=== PATIENT | female | born 1940 | race Caucasian/White ===

== ENCOUNTER → 2016-09-11 09:25 | Outpatient (CLI) | payer MEDICARE, OTHER ==
[2009-10-06 10:40] VITALS: BMI 39.3
[2016-09-11 10:39] LABS: ALBUMIN 3.5 g/dL (3.4-5.0); BILIRUBIN - INDIRECT 0.26 mg/dL (0.00-1.00); BILIRUBIN - TOTAL 0.3 mg/dL (0.2-1.3); PROTEIN - SERUM 6.9 g/dL (6.4-8.2)
[2016-09-11 10:41] LABS: BILIRUBIN - DIRECT 0.04 mg/dL (0.00-0.30)
== END | disposition home or self-care (01) ==
LOC: D.US 09-04 09:00 → D.LAB 09-04 09:30 → D.US 09:25
PROVIDERS: Internal Medicine Gastroenterology
DX: K76.0 Fatty (change of) liver, not elsewhere classified (principal)

== ENCOUNTER → 2017-03-13 08:59 | Outpatient (CLI) | payer MEDICARE, OTHER ==
[2009-10-06 10:40] VITALS: BMI 39.3
[2017-03-13 09:54] LABS: ALBUMIN 3.5 g/dL (3.4-5.0); BILIRUBIN - DIRECT 0.08 mg/dL (0.00-0.30); BILIRUBIN - INDIRECT 0.25 mg/dL (0.00-1.00); BILIRUBIN - TOTAL 0.33 mg/dL (0.2-1.3)
== END | disposition home or self-care (01) ==
LOC: D.US 08:59
PROVIDERS: Internal Medicine Gastroenterology
DX: K76.0 Fatty (change of) liver, not elsewhere classified (principal)

== ENCOUNTER → 2017-09-18 08:26 | Outpatient (CLI) | payer MEDICARE, OTHER ==
[2009-10-06 10:40] VITALS: BMI 39.3
[2017-09-18 09:27] LABS: ALBUMIN 3.7 g/dL (3.4-5.0); BILIRUBIN - DIRECT 0.1 mg/dL (0.00-0.30); BILIRUBIN - INDIRECT 0.32 mg/dL (0.00-1.00); BILIRUBIN - TOTAL 0.42 mg/dL (0.2-1.3); PROTEIN - SERUM 7.2 g/dL (6.4-8.2)
== END | disposition home or self-care (01) ==
LOC: D.LAB 08-12 08:30 → D.US 08-12 08:30 → D.LAB 08-12 09:00 → D.US 08:26
PROVIDERS: Internal Medicine Gastroenterology
DX: K76.0 Fatty (change of) liver, not elsewhere classified (principal)

== ENCOUNTER → 2018-03-06 09:24 | Outpatient (CLI) | payer MEDICARE, OTHER ==
[2009-10-06 10:40] VITALS: BMI 39.3
[2018-03-06 10:15] LABS: ALBUMIN 3.6 g/dL (3.4-5.0); BILIRUBIN - DIRECT 0.14 mg/dL (0.00-0.30); BILIRUBIN - INDIRECT 0.39 mg/dL (0.00-1.00); BILIRUBIN - TOTAL 0.53 mg/dL (0.2-1.3); PROTEIN - SERUM 7.2 g/dL (6.4-8.2)
== END | disposition home or self-care (01) ==
LOC: D.LAB 09:15 → D.US 09:30
PROVIDERS: Internal Medicine Gastroenterology
DX: K76.0 Fatty (change of) liver, not elsewhere classified (principal)

== ENCOUNTER → 2018-03-26 11:34 | Outpatient (CLI) | payer MEDICARE, OTHER ==
[2009-10-06 10:40] VITALS: BMI 39.3
== END | disposition home or self-care (01) ==
LOC: D.HCCARDIO 11:34
DX: I20.9 Angina pectoris, unspecified (principal)

== ENCOUNTER → 2018-04-09 10:51 | Outpatient (CLI) | payer MEDICARE, OTHER ==
[~2018-04-09] VITALS: Ht 154.9 cm; Wt 95.0 kg
--- NOTE | ~2018-04-09 | HEMODYNAMI ---
PATIENT:MIESHA OVERTON MEDICAL RECORD: [id number] : 44 LOCATION:[facility] ADMISSION DATE: 04/09/18 Generatedon:04/09/201814:13 Patient name: MIESHA OVERTON Patient #: [id number] SSN: : 1940 Date of study: 04/09/2018 Page: Of Hemodynamic Procedure Report Patient Data Patient Demographics Procedure consent was obtained First Name: MIESHA Gender: Female Last Name: BROOKLYNN : 1940 Middle Initial: A Age: 77 year(s) Patient #: [id number] Race: Unknown Additional ID: [id number] Contact details Address: [address] [place] [address] State: [place] City: [place] Zip code: [address] Past Medical History Allergies: No known allergies Admission Admission Data Admission Date: 04/09/2018 Admission Time: 10:51 Admit Source: Other Height (in.): 61 BSA: 1.95 (m2) Height (cm.): 154.94 BMI: 40.62 (kg/m2) Weight (lbs.): 215 Weight (kg.): 97.52 Lab Results Lab Result Date: 04/09/2018 Lab Result Time: 0:00 Biochemistry Name Units Result Min Max BUN mg/dl 17 --(---*)-- 7 18 Creatinine mg/dl 0.9 --(-*--)-- 0.6 1.3 CBC Name Units Result Min Max Hemoglobin g/dl 14.5 --(*---)-- 13.5 17.5 Procedure Procedure Types Cath Procedure Diagnostic Procedure [facility] w/Coronaries Sedation Charges Moderate Sedation up to 15 minutes PCI Procedure Coronary Stent Coronary Stent Initial Procedure Description Procedure Date Procedure Date: 04/09/2018 Procedure Start Time: 13:45 Procedure End Time: 14:12 Procedure Staff Name Function Scott Jiang MD Performing Physician Wanda Lynn RT Monitor Reginald Cruz RT Scrub Dori Diamond RN Nurse Bunny Whittington RT Human Geography Faculty Member Procedure Data Cath Procedure Fluoroscopy Diagnostic fluoroscopy Total fluoroscopy Time: 6.5 time: 6.5 min min Diagnostic fluoroscopy Total fluoroscopy dose: dose: 1241 mGy 1241 mGy Contrast Material Contrast Material Type Amount (ml) Isovue 300 132 Entry Location Entry Primary Successful Side Size Upsize Upsize Entry Closure Arechiga ccessful Closure Location (Fr) 1 (Fr) 2 (Fr) Remarks Device Remarks Radial Right 6 Fr Mechanical artery Short Compression Estimated blood loss: 10 ml Diagnostic catheters Device Type Used For End Catheter Placement DIAGNOSTIC [place] 110cm 5 Procedure Fr catheter ([id number]) Procedure Complications No complications Procedure Medications Medication Administration Route Dosage 0.9% NaCl I.V. 100 ml/hr Oxygen etCO2 Nasal cannula 2 l/min Lidocaine 2% added to field 20 Heparin Flush Bag added to field 2 bags (1000units/500ml NS) Radial Cocktail added to field 1 syringe (Verapomil 2mg/Nitro 400mcg/Heparin 1500units) Fentanyl I.V. 100 mcg Versed I.V. 2 mg Heparin Bolus I.V. 9500 units Nitroglycerin IC/IA I.C. 100 mcg Brilinta P.O. 180 mg Hemodynamics Rest BSA: 1.95 (m2) O2 Consumption: Estimated: 174.74 (ml/min) O2 Consumption indexed : Estimated:89.61 (ml/min/m) Heart Rate: 66 (bpm) Pressure Samples Time Site Value (mmHg) Purpose Heart Use Rate(bpm) 13:48 LV 176/8,14 Snapshot 66 Gradients Valve Time Site Site Mean SEP/DFP Peak To Heart Use 1 2 (mmHg) (sec/min) Peak Rate (mmHg) (bpm) Aortic 13:49 LV AO 69 Snapshots Pre Cath Intra NCS Post Cath Vital Signs Time Heart Resp SPO2 etCO2 NIBP (mmHg) Rhythm Pain Sedation Rate (ipm) (%) (mmHg) Status Level (bpm) 13:34:46 61 16 99 35.1 175/55(73) NSR 0 (11) 10(A) , No pain 13:39:32 60 19 98 29 169/81(118) NSR 0 (11) 10(A) , No pain 13:44:15 62 16 97 36 167/85(133) NSR 0 (11) 9(A) , No pain 13:49:49 66 16 96 28.2 182/85(137) NSR 0 (11) 9(A) , No pain 13:54:34 65 15 97 20.9 181/87(137) NSR 0 (11) 9(A) , No pain 13:59:24 66 13 97 29.9 172/74(132) NSR 0 (11) 9(A) , No pain 14:04:09 67 22 98 38.9 172/80(131) NSR 0 (11) 9(A) , No pain 14:08:50 69 20 99 38.1 162/83(115) NSR 0 (11) 10(A) , No pain Medications Time Medication Route Dose Verified Delivered Reason Not es Effectiveness by by 13:33:13 0.9% NaCl I.V. 100 Scott Dori used for ml/hr Apolinar Diamond laboratory animal care veterinarian 13:33:23 Oxygen etCO2 2 l/min Scott Dori used for Nasal Apolinar Diamond procedure cannula RN 13:33:29 Lidocaine 2% added 20ml Scott Scott for local to vial Apolinar Jiang MD anesthetic field 13:33:34 Heparin Flush added 2 bags Scott Scott used for Bag to Apolinar Jiang MD procedure (1000units/500ml field NS) 13:33:44 Radial Cocktail added 1 Scott Scott used for (Verapomil to syringe Apolinar Jiang MD procedure 2mg/Nitro field 400mcg/Heparin 1500units) 13:40:53 Fentanyl I.V. 100 mcg Scott Dori for sedation Apolinar Diamond RN 13:41:00 Versed I.V. 2 mg Scott Dori for sedation Apolinar Diamond RN 13:56:25 Heparin Bolus I.V. 9500 Scott Dori for sarah ified units Apolinar Diamond anticoagulation with Dr. MATTHEW Jiang 14:07:30 Nitroglycerin I.C. 100 mcg Scott Dori for IC/IA Apolinar velasquez RN 14:09:59 Brilinta P.O. 180 mg Scott Dori for Apolinar Diamond antiplatelet RN therapy Procedure Log Time Note 13:19:15 Informed consent obtained and on chart 13:19:18 Admit Source: Other 13:20:04 Diagnostic Cath status Elective 13:20:26 Time tracking: Regular hours (M-F 7:00 - 5:00) 13:20:30 Plan of Care:Hemodynamics will remain stable., Cardiac rhythm will remain stable., Comfort level will be maintained., Respiratory function will remain adequate., Patient/ family verbilizes understanding of procedure., Procedure tolerated without complication., Recovers from procedure without complications.. 13:20:32 Bunny Arechigapedrito RT(R) sent for patient. Start room use. 13:23:19 H&P Date Dictated: 03/12/2018 Within 30 days and on chart., H&P Addendum completed by physician on day of procedure. (MUST COMPLETE FOR ALL OUTPATIENTS). 13:23:41 Patient allergic to No known allergies 13:23:48 Patient Height : 61 inches 13:23:50 Patient Weight : 215 lbs 13:25:47 Patient received from Pre/Post Procedure Room to CCL 1 Alert and oriented. Tansferred to table in Supine position. 13:25:48 Warm blankets applied, and augustus hugger turned on for patient comfort. 13:25:48 Correct patient and procedure confirmed by team. 13:25:49 ECG and BP/O2 sat monitors applied to patient. 13:33:00 Vital chart was started 13:33:13 0.9% NaCl 100 ml/hr I.V. was administered by Dori Diamond RN; used for procedure; 13:33:23 Oxygen 2 l/min etCO2 Nasal cannula was administered by Dori Diamond RN; used for procedure; 13:33:29 Lidocaine 2% 20ml vial added to field was administered by Scott Jiang MD; for local anesthetic; 13:33:34 Heparin Flush Bag (1000units/500ml NS) 2 bags added to field was administered by Scott Jiang MD; used for procedure; 13:33:44 Radial Cocktail (Verapomil 2mg/Nitro 400mcg/Heparin 1500units) 1 syringe added to field was administered by Scott Jiang MD; used for procedure; 13:38:40 Rhythm: sinus bradycardia 13:38:41 Full Disclosure recording started 13:38:42 Pre-procedure instructions explained to patient. 13:38:42 Pre-op teaching completed and patient verbalized understanding. 13:38:44 Family in patients room. 13:38:45 Patient NPO since Midnight. 13:38:50 Is the patient allergic to Iodine/contrast media? No. 13:38:52 Is patient on blood thinner?No 13:38:54 Patient diabetic? No. 13:38:56 Patient not . Patient is over age 55. 13:39:03 Previous problem with sedation/anesthesia? No ? 13:39:05 Snore? Yes 13:39:06 Sleep apnea? No 13:39:10 Deviated septum? No 13:39:11 Opens mouth fully? Yes 13:39:13 Sticks out tongue? Yes 13:39:14 Airway obstruction? No ? 13:39:15 Dentures? No ? 13:39:20 Modified Zaheer's test Ulnar < 7 seconds 13:39:22 Patient pain scale 0/10 ?. 13:39:25 IV patent on arrival in left hand with 0.9% NaCl at [facility] 13:40:21 Lab Result : BUN 17 mg/dl 13:40:21 Lab Result : Creatinine 0.9 mg/dl 13:40:21 Lab Result : Hemoglobin 14.5 g/dl 13:40:24 Lab results completed and on chart. 13:40:27 Right Radial & Right Groin area was prepped with chlora-prep and draped in sterile fashion 13:40:27 Alarms reviewed by R. N. 13:40:28 Sharps counted by scrub and verified by R.N. 13:40:29 --------ALL STOP TIME OUT------ 13:40:29 Final Timeout: patient, procedure, and site verified with staff and physician. All members of the team are in agreement. 13:40:30 Right Radial & Right Groin site verified by team. 13:40:33 Physical assessment completed. ASA score P 2 - A patient with mild systemic disease as per Scott Jiang MD. 13:40:35 Sedation plan: IV Moderate Sedation Medication:Versed, Fentanyl 13:40:53 Fentanyl 100 mcg I.V. was administered by Dori Diamond RN; for sedation; 13:41:00 Versed 2 mg I.V. was administered by Dori Diamond RN; for sedation; 13:42:12 Use device set Radial Dx or PCI 13:42:15 ACIST Syringe (47272) opened to sterile field. 13:42:16 Bag Decanter (2001S) opened to sterile field. 13:42:17 ACIST Hand Control (03309) opened to sterile field. 13:42:17 ACIST Manifold (17588) opened to sterile field. 13:42:18 Tegaderm 4 x 4 (1626W) opened to sterile field. 13:42:20 Medline Cath Pack ([id number]) opened to sterile field. 13:42:20 DIAGNOSTIC WIRE .035 260cm J wire (605694) opened to sterile field. 13:42:20 MBrace Wrist Support ([id number]) opened to sterile field. 13:42:22 SHEATH 6FR Slender (80-7652) opened to sterile field. 13:42:26 NEEDLE Cook 21G 4cm Radial (X60702) opened to sterile field. 13:45:08 Zero performed for pressure channel P1 13:45:22 Procedure started. 13:45:54 Local anesthetic to right radial artery with Lidocaine 2% by Scott Jiang MD.INITIAL ACCESS ONLY 13:46:01 Zero performed for pressure channel P1 13:47:16 A 6 Fr Short sheath was inserted into the Right Radial artery 13:47:38 A DIAGNOSTIC [place] 110cm 5 Fr catheter (404855) was advanced over the wire and used for Procedure. 13:48:09 LV gram done using PÉREZ 13:48:12 Injector settings: Ml/sec: 5, Volume: 15, 13:48:32 LV hemodynamics recorded. 13:48:58 EF : 50 % 13:51:55 LCA angiography performed. 13:52:27 RCA angiography performed. 13:52:36 Catheter exchanged over wire. 13:52:51 INFLATOR Merit BasixCompak (BP2324) opened to sterile field. 13:52:51 BMW 300cm Straight [place] 2 wire (6955432) opened to sterile field. 13:52:57 TUBING High Pressure Extension Tubing (Apolinar) (XT7832N) opened to sterile field. 13:53:01 GUIDE 6FR XBLAD 3.5 catheter (07965789) opened to sterile field. 13:54:59 6 Fr XBLAD 3.5 guide catheter was inserted over the wire 13:56:25 Heparin Bolus 9500 units I.V. was administered by Dori Diamond RN; for anticoagulation; verified with Dr. Jiang 13:57:13 BMW 300 wire advanced. 13:57:52 Wire advanced across lesion. 13:59:38 Inflate balloon Inflation number: 1 A EMERGE OTW 2.5 x 12 balloon ([id number]) was prepped and advanced across the Prox LAD, then inflated to 10 JUNIOR for 0:10 (min:sec). 14:00:03 Balloon removed over the wire. 14:04:50 Place stent Inflation Number: 2 A CELESTE OTW 3.0 x 12 stent ([id number]) was prepped and advanced across the Prox LAD. The stent was deployed at 10 JUNIOR for 0:10 (min:sec). 14:05:49 Stent catheter was removed intact over wire. 14:07:30 Nitroglycerin IC/IA 100 mcg I.C. was administered by Dori Diamond RN; for vasodilation; 14:08:30 Wire removed. 14:08:31 Guide catheter removed. 14:08:36 TR BAND Standard ([id number]) opened to sterile field. 14:09:06 Procedure ended.(Physican Out) 14:09:45 Sheath removed intact; hemostasis achieved with Mechanical Compression to the Right Radial artery. 14:09:51 Fluoroscopy time 06.50 minutes. 14:09:59 Brilinta 180 mg P.O. was administered by Dori Diamond RN; for antiplatelet therapy; 14:10:03 Fluoroscopy dose: 1241 mGy 14:10:03 Flurop Dose total: 1241 14:10:07 Contrast amount:Isovue 300 132ml. 14:10:09 Sharps counted by scrub and verified by R.N. 14:10:13 TR band inflated with 13cc of air. 14:11:27 Post-procedure physical assessment completed. ASA score P 2 - A patient with mild systemic disease as per Scott Jiang MD. 14:11:32 Post procedure rhythm: sinus rhythm 14:11:35 Estimated blood loss: 10 ml 14:11:37 Post procedure instruction explained to patient.Patient verbalizes understanding. 14:11:37 Patient needs reinforcement of post procedure teaching. 14:12:02 Procedure type changed to Cath procedure, Diagnostic procedure, LHC, LHC w/Coronaries, Sedation Charges, Moderate Sedation up to 15 minutes, PCI procedure, Coronary Stent, Coronary Stent Initial 14:12:05 Procedure and supply charges have been captured, reviewed, submitted and are correct. 14:12:16 Procedure Complication : No complications 14:12:18 Vital chart was stopped 14:12:18 See physician's report for complete and final results. 14:12:20 Report given to Pre/Post Procedure Room. 14:12:22 Patient transfered to Pre/Post Procedure Room with Bed. 14:12:24 Procedure ended. 14:12:24 Full Disclosure recording stopped 14:12:27 End room use (Document Last) Intervention Summary Intervention Notes Time ActionType Lesion and Equipment Action# Pressure Duration Attributes Used 13:59:38 Inflate Prox LAD EMERGE OTW 1 10 00:10 balloon 2.5 x 12 balloon ([id number]) 14:04:50 Place stent Prox LAD CELESTE OTW 3.0 2 10 00:10 x 12 stent ([id number]) Device Usage Item Name Manufacture Quantity Catalog Number [facility] Lot# / Charge Number Stock Stock Serial# Code ACIST Syringe Acist 1 34441 801405 649715 762130 20 (40547) Medical Systems Inc Bag Decanter Microtek 1 2001S 808598 18692 652365 5 (2002S) Medical Inc. ACIST Hand Acist 1 03290 323329 948052 578366 5 Control Medical (51408) Systems Inc ACIST Acist 1 44191 113384 315425 100159 5 Manifold Medical (80249) Systems Inc Tegaderm 4 x 3M 1 1626W 586352 533112 853706 5 4 (1626W) Medline Cath Medline 1 [id number] 932062 39170 792835 5 Pack ([id number]) DIAGNOSTIC St Hua 1 382069 120926 871243 824278 30 WIRE .035 260cm J wire (389339) MBrace Wrist Advanced 1 140-0250-00 207401 47744 328620 5 Support Vascular ([id number]) Dynamics SHEATH 6FR Terumo 1 [id number] 467697 345707 730479 5 Slender (80-1060) NEEDLE Trufa Medical 1 W55960 512226 807510 653256 5 21G 4cm Radial (B25161) DIAGNOSTIC Terumo 1 40-0663 035472 933008 596197 5 [place] 110cm 5 Fr catheter (192108) INFLATOR Merit 1 WI3978 657926 480085 046354 15 Merit Medical BasixCompak (FK2866) BMW 300cm Vivas 1 9302326 678719 567743 071709 5 Straight Vascular [place] 2 wire (0632392) TUBING High Merit 1 [id number] 854854 76615 919674 10 Pressure Medical Extension Tubing (Jiang) (RS7038Q) GUIDE 6FR Cardinal 1 [id number] 048917 840278 462135 10 XBLAD 3.5 Health catheter (14677496) EMERGE OTW [place] 1 [id number] 370013 361212 307248 5 [id number] 2.5 x 12 Scientific balloon ([id number]) CELESTE OTW 3.0 Medtronic 1 [id number] 389237 235085 867028 5 [id number] x 12 stent ([id number]) TR BAND Terumo 1 [id number] 944813 786546 700910 40 Standard ([id number]) Signature Audit [facility] Stage Time Signature Unsigned Intra-Procedure 04/09/2018 Wanda Lynn 2:13:22 PM RT(R) Signatures Monitor : Wanda Lynn Signature : RT Date : Time : [place] [id number] [place] [address]
[~2018-04-09 10:51] MED LIST: BRILINTA90 MG PO; TENORMIN100 MG PO
[2018-04-09 11:19] VITALS: BP 189/80; Ht 154.9 cm; Wt 95.0 kg
[2018-04-09 11:45] LABS: BASOPHILS 0.4 % (0-2); EOSINOPHILS 2.3 % (0-7); HEMATOCRIT 43.1 % (36.0-48.0); HEMOGLOBIN 14.5 g/dL (12-16); LYMPHOCYTES 39.9 % (15-50); MCH 31.2 pg (26.0-34.0); MCHC 33.6 g/dL (31.0-37.0); MCV 92.7 fL (80.0-100.0); MEAN PLATELET VOLUME 10.6 fL (7.4-10.4); MONOCYTES 10.8 % (2-11); NEUTROPHILS 46.6 % (40-80); PLATELET COUNT 253 10x3/uL (130-400); RBC 4.65 10x6/uL (4.00-5.40); RDW 13.5 % (11.5-14.5)
[2018-04-09 12:12] LABS: ANION GAP 13.3 mmol/L (8-16); CALCIUM 9.1 mg/dL (8.5-10.1); CREATININE - SERUM 0.9 mg/dL (0.6-1.3); POTASSIUM - SERUM 4.3 mmol/L (3.5-5.1)
== END | disposition home or self-care (01) ==
LOC: D.CATH 10:51
PROVIDERS: Internal Medicine Cardiovascular Disease
DX: I25.119 Atherosclerotic heart disease of native coronary artery with unspecified angina pectoris (principal); Z01.812 Encounter for preprocedural laboratory examination
CPT/HCPCS: 93458; C9600

== ENCOUNTER → 2018-06-19 10:04 | Outpatient (CLI) | payer MEDICARE, OTHER ==
[2018-04-09 11:19] VITALS: BMI 39.5
== END | disposition home or self-care (01) ==
LOC: D.HCCARDIO 10:04
DX: I25.10 Atherosclerotic heart disease of native coronary artery without angina pectoris (principal)

== ENCOUNTER 2018-06-30 11:28 | Outpatient (CLI) | payer MEDICARE, OTHER ==
[~2018-06-30] VITALS: Ht 154.9 cm; Wt 96.8 kg
--- NOTE | ~2018-06-30 | HEMODYNAMI ---
PATIENT:MIESHA OVERTON MEDICAL RECORD: [id number] : 44 LOCATION:[facility] ADMISSION DATE: 06/30/18 Generatedon:06/30/201814:31 Patient name: MIESHA OVERTON Patient #: [id number] SSN: : 1940 Date of study: 06/30/2018 Page: Of Hemodynamic Procedure Report Patient Data Patient Demographics Procedure consent was obtained First Name: MIESHA Gender: Female Last Name: BROOKLYNN : 1940 Middle Initial: A Age: 77 year(s) Patient #: [id number] Race: Unknown Additional ID: [id number] Contact details Address: [address] [place] [address] State: [place] City: [place] Zip code: [address] Past Medical History Allergies: No known allergies Admission Admission Data Admission Date: 06/30/2018 Admission Time: 11:28 Procedure Procedure Types Cath Procedure Diagnostic Procedure LHC LHC w/Coronaries Procedure Description Procedure Date Procedure Date: 06/30/2018 Procedure Start Time: 14:19 Procedure End Time: 14:29 Procedure Staff Name Function Scott Jiang MD Performing Physician Radha Fowler RT Monitor Myke Castro RT Scrub Dori Diamond RN Nurse Albin Cowan RN General Passenger Agent Procedure Data Cath Procedure Fluoroscopy Diagnostic fluoroscopy Total fluoroscopy Time: 1.9 time: 1.9 min min Diagnostic fluoroscopy Total fluoroscopy dose: 210 dose: 210 mGy mGy Contrast Material Contrast Material Type Amount (ml) Isovue 300 60 Entry Location Entry Primary Successful Side Size Upsize Upsize Entry Closure Arechiga ccessful Closure Location (Fr) 1 (Fr) 2 (Fr) Remarks Device Remarks Radial Right 6 Fr Mechanical artery Short Compression Estimated blood loss: 5 ml Diagnostic catheters Device Type Used For End Catheter Placement DIAGNOSTIC [place] 110cm 5 LV Angiography Fr catheter ([id number]) DIAGNOSTIC [place] 110cm 5 Right Coronary Fr catheter ([id number]) Angiography DIAGNOSTIC [place] 4.5 5Fr Left Coronary catheter ([id number]) Angiography Procedure Complications No complications Procedure Medications Medication Administration Route Dosage 0.9% NaCl I.V. 100 ml/hr Oxygen etCO2 Nasal cannula 2 l/min Lidocaine 2% added to field 20 Heparin Flush Bag added to field 2 bags (1000units/500ml NS) Radial Cocktail added to field 1 syringe (Verapomil 2mg/Nitro 400mcg/Heparin 1500units) Versed I.V. 2 mg Fentanyl I.V. 50 mcg Hemodynamics Rest Heart Rate: 59 (bpm) Pressure Samples Time Site Value (mmHg) Purpose Heart Use Rate(bpm) 14:21 LV 170/15,25 EDP 66 Gradients Valve Time Site Site Mean SEP/DFP Peak To Heart Use 1 2 (mmHg) (sec/min) Peak Rate (mmHg) (bpm) Aortic 14:21 LV AO 51 Snapshots Pre Cath Intra NCS Post Cath Vital Signs Time Heart Resp SPO2 etCO2 NIBP (mmHg) Rhythm Pain Sedation Rate (ipm) (%) (mmHg) Status Level (bpm) 14:07:41 58 21 100 5.2 193/76(119) NSR 0 (11) 10(A) , No pain 14:12:45 63 21 98 21.9 197/87(132) NSR 0 (11) 10(A) , No pain 14:17:46 60 21 96 33 194/89(142) NSR 0 (11) 9(A) , No pain 14:22:40 66 21 98 8.3 187/89(136) NSR 0 (11) 9(A) , No pain 14:27:40 64 21 98 32.5 199/87(134) NSR 0 (11) 10(A) , No pain Medications Time Medication Route Dose Verified Delivered Reason Notes E ffectiveness by by 14:06:43 0.9% NaCl I.V. 100 Scott Dori used for ml/hr Apolinar Diamond soil tester 14:06:49 Oxygen etCO2 2 l/min Scott Dori used for Nasal Apolinar Diamond procedure cannula RN 14:06:55 Lidocaine 2% added 20ml Scott Scott for local to vial Apolinar Jiang MD anesthetic field 14:06:59 Heparin Flush added 2 bags Scott Scott used for Bag to Apolinar Jiang MD procedure (1000units/500ml field NS) 14:07:05 Radial Cocktail added 1 Scott Scott used for (Verapomil to syringe Apolinar Jiang MD procedure 2mg/Nitro field 400mcg/Heparin 1500units) 14:14:17 Fentanyl I.V. 50 mcg Scott Dori for Apolinar Diamond sedation RN 14:14:56 Versed I.V. 2 mg Scott Dori for Apolinar Diamond sedation pit boss Log Time Note 13:40:21 Albin Cowan RN sent for patient. Start room use. 13:54:22 Time tracking: Regular hours (M-F 7:00 - 5:00) 13:54:26 Plan of Care:Hemodynamics will remain stable., Cardiac rhythm will remain stable., Comfort level will be maintained., Respiratory function will remain adequate., Patient/ family verbilizes understanding of procedure., Procedure tolerated without complication., Recovers from procedure without complications.. 13:55:59 Patient received from Pre/Post Procedure Room to [facility] 3 Alert and oriented. Tansferred to table in Supine position. 13:56:00 Warm blankets applied, and augustus hugger turned on for patient comfort. 13:56:01 Correct patient and procedure confirmed by team. 13:56:02 Signed procedure consent form obtained from patient. 13:56:03 ECG and BP/O2 sat monitors applied to patient. 13:56:03 Full Disclosure recording started 13:56:53 H&P Date Dictated: 06/12/2018 Within 30 days and on chart., H&P Addendum completed by physician on day of procedure. (MUST COMPLETE FOR ALL OUTPATIENTS). 13:56:59 Pre-procedure instructions explained to patient. 13:56:59 Pre-op teaching completed and patient verbalized understanding. 13:57:01 Family in waiting room. 13:57:03 Patient NPO since Midnight. 13:57:12 Patient allergic to No known allergies 13:57:15 Is the patient allergic to Iodine/contrast media? No. 13:57:17 Is patient on blood thinner?Yes 13:57:19 ACC The patient was administered the following blood thiners within the last 24 hours: ACCPlavix 13:57:22 Patient diabetic? No. 13:57:27 Previous problem with sedation/anesthesia? No ? 13:57:28 Snore? Yes 13:57:29 Sleep apnea? No 13:57:30 Deviated septum? No 13:57:31 Opens mouth fully? Yes 13:57:31 Sticks out tongue? Yes 13:57:33 Airway obstruction? No ? 13:57:35 Dentures? No ? 14:02:52 Pre procedure: right dorsailis pedis pulse 2+ Normal; easily identifiable; not easily obliterated 14:02:54 Modified Zaheer's test Ulnar < 7 seconds 14:02:56 Patient pain scale 0/10 ?. 14:03:00 IV patent on arrival in right forearm with 0.9% NaCl at [facility]. 14:03:02 Lab results completed and on chart. 14:03:07 Right Radial & Right Groin area was prepped with chlora-prep and draped in sterile fashion 14:03:07 Alarms reviewed by R. N. 14:03:08 Sharps counted by scrub and verified by R.N. 14:03:10 Use device set Radial Dx or PCI 14:03:11 ACIST Syringe (34769) opened to sterile field. 14:03:12 Medline Cath Pack ([id number]) opened to sterile field. 14:03:12 Bag Decanter (2002S) opened to sterile field. 14:03:13 DIAGNOSTIC WIRE .035 260cm J wire (326206) opened to sterile field. 14:03:13 ACIST Hand Control (89350) opened to sterile field. 14:03:13 ACIST Manifold (02991) opened to sterile field. 14:03:17 MBrace Wrist Support ([id number]) opened to sterile field. 14:03:18 SHEATH 6FR Slender (28-1060) opened to sterile field. 14:05:52 Vital chart was started 14:06:43 0.9% NaCl 100 ml/hr I.V. was administered by Dori Diamond RN; used for procedure; 14:06:49 Oxygen 2 l/min etCO2 Nasal cannula was administered by Dori Diamond RN; used for procedure; 14:06:55 Lidocaine 2% 20ml vial added to field was administered by Scott Jiang MD; for local anesthetic; 14:06:59 Heparin Flush Bag (1000units/500ml NS) 2 bags added to field was administered by Scott Jiang MD; used for procedure; 14:07:05 Radial Cocktail (Verapomil 2mg/Nitro 400mcg/Heparin 1500units) 1 syringe added to field was administered by Scott Jiang MD; used for procedure; 14:12:18 Rhythm: sinus bradycardia 14:12:20 Baseline sample Acquired. 14::22 Final Timeout: patient, procedure, and site verified with staff and physician. All members of the team are in agreement. 14:13:24 Right Radial site verified by team. 14::34 Fire Safety Assessment: A--An alcohol-based skin anteseptic being used preoperatively., C--Open oxygen or nitrous oxide is being used., D--An ESU, laser, or fiber-optic light is being used. 14:13:37 Physical assessment completed. ASA score P 2 - A patient with mild systemic disease as per Scott Jiang MD. 14:13:39 Sedation plan: IV Moderate Sedation Medication:Versed, Fentanyl 14:14:17 Fentanyl 50 mcg I.V. was administered by Dori Diamond RN; for sedation; 14:14:56 Versed 2 mg I.V. was administered by Dori Diamond RN; for sedation; 14:18:01 Procedure started. 14:18:15 Zero performed for pressure channel P1 14:19:33 Local anesthetic to right radial artery with Lidocaine 2% by Scott Jiang MD.INITIAL ACCESS ONLY 14:19:41 A 6 Fr Short sheath was inserted into the Right Radial artery 14:20:32 A DIAGNOSTIC [place] 110cm 5 Fr catheter ([id number]) was advanced over the wire and used for LV Angiography. 14:21:17 LV gram done using PÉREZ 14:21:18 LV hemodynamics recorded. 14:21:20 Injector settings: Ml/sec: 5, Volume: 15, 14:21:25 EF : 55 % 14:22:28 A DIAGNOSTIC [place] 110cm 5 Fr catheter (041010) was advanced over the wire and used for Right Coronary Angiography. 14:22:37 Catheter exchanged over wire. 14:23:14 A DIAGNOSTIC [place] 4.5 5Fr catheter (528649) was advanced over the wire and used for Left Coronary Angiography. 14:26:27 Catheter removed. 14::34 TR BAND Standard ([id number]) opened to sterile field. 14:26:48 Sheath removed intact; hemostasis achieved with Mechanical Compression to the Right Radial artery. 14:26:56 Procedure ended.(Physican Out) 14:27:07 Fluoroscopy time 01.90 minutes. 14:27:12 Flurop Dose total: 210 14:27:12 Fluoroscopy dose: 210 mGy 14:27:15 Contrast amount:Isovue 300 60ml. 14:27:16 Sharps counted by scrub and verified by R.N. 14:27:18 TR band inflated with 12cc of air. 14:27:20 Insertion/operative site no bleeding no hematoma. 14:27:26 Post right radial artery:stable, clean and dry 14:27:27 Post Procedure Pulses reassessed and unchanged 14:27:36 Post-procedure physical assessment completed. ASA score P 2 - A patient with mild systemic disease as per Scott Jiang MD. 14:27:37 Post procedure rhythm: unchanged. 14:27:40 Estimated blood loss: 5 ml 14:27:42 Post procedure instruction explained to patient.Patient verbalizes understanding. 14:27:42 Patient needs reinforcement of post procedure teaching. 14:27:52 Procedure Complication : No complications 14:28:25 Procedure and supply charges have been captured, reviewed, submitted and are correct. 14:28:42 See physician's report for complete and final results. 14:29:24 Vital chart was stopped 14:29:33 Report given to Pre/Post Procedure Room. 14:29:36 Patient transfered to Pre/Post Procedure Room with Stretcher. 14:29:44 Procedure ended. 14:29:44 Full Disclosure recording stopped 14:29:51 End room use (Document Last) Device Usage Item Name Manufacture Quantity Catalog Hospital Part Current Minimal Lot# / Number Charge Number Stock Stock Serial# Code ACIST Acist 1 98744 803751 277579 810270 20 Syringe Medical (41573) Systems Inc Medline Medline 1 [id number] 027208 51057 429383 5 Cath Pack ([id number]) Bag Microtek 1 682018 58926 170107 5 Decanter Medical Inc. () DIAGNOSTIC [facility] [place] 1 192773 525122 249392 263721 30 WIRE .035 260cm J wire (298297) ACIST Hand Acist 1 32658 384053 687383 050961 5 Control Medical (09005) Systems Inc ACIST Acist 1 60414 369988 543634 351855 5 Manifold Medical (34796) Systems Inc MBrace Advanced 1 140-0250-00 026792 82470 943924 5 Wrist Vascular Support Dynamics ([id number]) SHEATH 6FR Terumo 1 [id number] 338934 943582 159742 5 Slender (80-1060) DIAGNOSTIC Terumo 1 40-5013 125905 737805 757781 5 [place] 110cm 5 Fr catheter (359716) DIAGNOSTIC Terumo 1 40-5012 525495 270313 476017 5 [place] 4.5 5Fr catheter (043085) TR BAND Terumo 1 [id number] 524362 198086 662644 40 Standard ([id number]) Signature Audit [place] Stage Time Signature Unsigned Intra-Procedure 06/30/2018 Radha 2:30:58 PM Counts RT(R) Signatures Monitor : Radha Signature : Counts RT Date : Time : [facility] [address] [place] [address]
[2018-06-30] MEDS ORDERED: BENICAR20 MG PO (11:44)
[2018-06-30] MEDS ORDERED: LIPITOR10 MG PO (11:44)
[2018-06-30] MEDS ORDERED: PLAVIX75 MG PO (11:44)
[2018-06-30 11:53] VITALS: BP 222/89; Ht 154.9 cm; Wt 96.8 kg
[2018-06-30 12:03] LABS: BASOPHILS 0.3 % (0-2); EOSINOPHILS 2.1 % (0-7); HEMATOCRIT 43.4 % (36.0-48.0); HEMOGLOBIN 14.6 g/dL (12-16); IMMATURE GRANULOCYTES 0.1 % (0-5); LYMPHOCYTES 35.7 % (15-50); MCH 31.1 pg (26.0-34.0); MCHC 33.6 g/dL (31.0-37.0); MCV 92.3 fL (80.0-100.0); MEAN PLATELET VOLUME 10.4 fL (7.4-10.4); MONOCYTES 9.4 % (2-11); NEUTROPHILS 52.4 % (40-80); PLATELET COUNT 254 10x3/uL (130-400); RDW 13.1 % (11.5-14.5); WBC 7.3 10x3/uL (4.8-10.8)
[2018-06-30 12:11] LABS: CALC OSMOLALITY 284 mosm/kg (275-300); CALCIUM 9.5 mg/dL (8.5-10.1); CHLORIDE - SERUM 106 mmol/L (98-107); CREATININE - SERUM 0.7 mg/dL (0.6-1.3); GLUCOSE 118 mg/dL (74-106); POTASSIUM - SERUM 4.2 mmol/L (3.5-5.1); SODIUM 143 mmol/L (136-145); UREA NITROGEN 11 mg/dL (7-18); eGFR NON AFRICAN AMERICAN 86 mL/min (90-120)
--- NOTE | 2018-06-30 14:55 | NUR ---
2L NC, NO RESP DISTRESS. RIGHT WRIST TR BAND CDI, NO BLEEDING OR HEMATOMA NOTED. NO C/O PAIN OR NAUSEA. VSS. FAMILY AT BEDSIDE, CALL LIGHT WITHIN REACH.
--- NOTE | 2018-06-30 15:25 | NUR ---
RIGHT WRIST TR BAND CDI, NO BLEEDING OR HEMATOMA NOTED. SIPPING ON DRINK AND EATING SANDWICH WITH NO C/O NAUSEA. NO OTHER NEEDS VOICED. VSS. WILL CONTINUE TO MONITOR.
--- NOTE | 2018-06-30 15:55 | NUR ---
3CC OF AIR REMOVED FROM TR BAND WITH NO BLEEDING NOTED. VSS. WILL CONTINUE TO MONITOR.
--- NOTE | 2018-06-30 16:13 | NUR ---
3CC OF AIR REMOVED FROM TR BAND WITH NO BLEEDING NOTED. VSS. WILL CONTINUE TO MONITOR.
--- NOTE | 2018-06-30 16:30 | NUR ---
LEFT PIV D/C'D WITH CATHETER INTACT, BAND AID TO SITE. UP TO BEDSIDE TO GET DRESSED. AMBULATED TO RESTROOM.
--- NOTE | 2018-06-30 16:40 | NUR ---
REMAINING AIR REMOVED FROM TR BAND WITH NO BLEEDING NOTED. DRESSING PLACED TO SITE. DISCHARGE INSTRUCTIONS GIVEN, VERBALIZED UNDERSTANDING.
--- NOTE | 2018-06-30 16:50 | NUR ---
TAKEN OUT VIA WHEELCHAIR BY CATH AQUATICS SPECIALIST. LEFT FACILITY WITH FAMILY AND ALL PERSONAL BELONGINGS.
== END 2018-06-30 16:50 | disposition home or self-care (01) ==
LOC: D.CATH 11:28
PROVIDERS: ATTEND Internal Medicine Cardiovascular Disease
DX: I25.119 Atherosclerotic heart disease of native coronary artery with unspecified angina pectoris (principal); Z95.5 Presence of coronary angioplasty implant and graft; Z01.812 Encounter for preprocedural laboratory examination

== ENCOUNTER → 2018-09-01 09:56 | Outpatient (CLI) | payer MEDICARE, OTHER ==
[2018-06-30 11:53] VITALS: BMI 40.3
[~2018-09-01 09:56] MED LIST changes: +BENICAR20 MG PO; +LIPITOR10 MG PO; +PLAVIX75 MG PO
[2018-09-01 10:29] LABS: ALBUMIN 3.7 g/dL (3.4-5.0); BILIRUBIN - DIRECT 0.08 mg/dL (0.00-0.30); BILIRUBIN - INDIRECT 0.26 mg/dL (0.00-1.00); BILIRUBIN - TOTAL 0.34 mg/dL (0.2-1.3); PROTEIN - SERUM 7.1 g/dL (6.4-8.2)
== END | disposition home or self-care (01) ==
LOC: D.US 08-27 10:00 → D.LAB 08-27 10:30
PROVIDERS: ATTEND Internal Medicine Gastroenterology
DX: K76.0 Fatty (change of) liver, not elsewhere classified (principal)

== ENCOUNTER → 2019-01-07 16:50 | Outpatient (CLI) | payer MEDICARE, OTHER ==
[2018-06-30 11:53] VITALS: BMI 40.3
== END | disposition home or self-care (01) ==
LOC: D.US 16:50
PROVIDERS: ATTEND Family Medicine
DX: M79.604 Pain in right leg (principal); R60.0 Localized edema

== ENCOUNTER → 2019-07-07 10:38 | Outpatient (CLI) | payer MEDICARE, OTHER ==
[2018-06-30 11:53] VITALS: BMI 40.3
[2019-07-07 11:26] LABS: ALBUMIN 3.6 g/dL (3.4-5.0); BILIRUBIN - DIRECT 0.11 mg/dL (0.00-0.30); BILIRUBIN - INDIRECT 0.32 mg/dL (0.00-1.00); BILIRUBIN - TOTAL 0.43 mg/dL (0.2-1.3); PROTEIN - SERUM 6.9 g/dL (6.4-8.2)
== END | disposition home or self-care (01) ==
LOC: D.LAB 10:38 → D.US 11:30
PROVIDERS: ATTEND Internal Medicine Gastroenterology
DX: K76.0 Fatty (change of) liver, not elsewhere classified (principal)

== ENCOUNTER → 2020-01-05 09:26 | Outpatient (CLI) | payer MEDICARE, OTHER ==
[2018-06-30 11:53] VITALS: BMI 40.3
[2020-01-05 10:00] LABS: ALBUMIN 3.6 g/dL (3.4-5.0); BILIRUBIN - DIRECT 0.16 mg/dL (0.00-0.30); BILIRUBIN - INDIRECT 0.43 mg/dL (0.00-1.00); BILIRUBIN - TOTAL 0.59 mg/dL (0.2-1.3); PROTEIN - SERUM 6.9 g/dL (6.4-8.2)
== END | disposition home or self-care (01) ==
LOC: D.LAB 09:26 → D.US 10:30
PROVIDERS: ATTEND Internal Medicine Gastroenterology
DX: K76.0 Fatty (change of) liver, not elsewhere classified (principal)

== ENCOUNTER → 2020-07-07 12:34 | Outpatient (CLI) | payer MEDICARE, OTHER ==
[2018-06-30 11:53] VITALS: BMI 40.3
== END | disposition home or self-care (01) ==
LOC: D.LAB 12:34
PROVIDERS: ATTEND Internal Medicine Pulmonary Disease
DX: Z11.52 Encounter for screening for COVID-19 (principal)

== ENCOUNTER → 2020-07-12 09:18 | Outpatient (CLI) | payer MEDICARE, OTHER ==
[2018-06-30 11:53] VITALS: BMI 40.3
== END | disposition home or self-care (01) ==
LOC: D.LAB 08:00 → D.US 10:00 → D.RT 10:30 → D.US 07-13 10:00 → D.RT 07-13 10:30
PROVIDERS: ATTEND Internal Medicine Pulmonary Disease
DX: R06.09 Other forms of dyspnea (principal); K76.0 Fatty (change of) liver, not elsewhere classified

== ENCOUNTER → 2020-08-17 10:11 | Outpatient (CLI) | payer MEDICARE, OTHER ==
[2018-06-30 11:53] VITALS: BMI 40.3
[2020-08-17 10:56] LABS: ALBUMIN 3.6 g/dL (3.4-5.0); BILIRUBIN - DIRECT 0.11 mg/dL (0.00-0.30); BILIRUBIN - INDIRECT 0.38 mg/dL (0.00-1.00); BILIRUBIN - TOTAL 0.49 mg/dL (0.2-1.3); PROTEIN - SERUM 6.8 g/dL (6.4-8.2)
== END | disposition home or self-care (01) ==
LOC: D.LAB 10:11
PROVIDERS: ATTEND Internal Medicine Gastroenterology
DX: K76.0 Fatty (change of) liver, not elsewhere classified (principal)